=== PATIENT | male | born 2000 | race Caucasian/White ===

== ENCOUNTER 2024-01-11 14:06 | Emergency (ER) | payer BC ==
[~2024-01-11] VITALS: Ht 182.9 cm; Wt 83.9 kg
[2024-01-11 15:33] VITALS: BP 129/75; TEMP 98; O2SAT 99
== END 2024-01-11 15:33 | disposition home or self-care (01) ==
LOC: ER 14:09
DX: S62.635A Displaced fracture of distal phalanx of left ring finger, initial encounter for closed fracture (principal); Z60.2 Problems related to living alone; X58.XXXA Exposure to other specified factors, initial encounter; Y93.61 Activity, american tackle football; Y92.89 Other specified places as the place of occurrence of the external cause; Y99.8 Other external cause status
CPT/HCPCS: 73140; A4606; A4663